=== PATIENT | male | born 1955 | race African-American/Black ===

== ENCOUNTER 2018-04-27 21:24 | Emergency (ER) | payer MEDICARE, MEDICAID ==
[~2018-04-27] VITALS: Ht 170.2 cm; Wt 70.3 kg
[2018-04-27 21:37] VITALS: BP 134/94
[2018-04-27] MEDS ORDERED: Sodium Chloride 500ML 500 ML IV ONE (21:49)
--- NOTE | 2018-04-27 21:51 | Emergency Room Report ---
History of Present Illness General Chief Complaint: Upper Respiratory Illness Source: Patient Present Illness HPI Patient present with complaints of cough and congestion Ongoing for the past 9 days Patient appears to have a stuttering deficit and difficult for him to provide full history Denies any recent travel there was complained to the triage regarding low back pain This will have to be readdressed as initially did not complain of this on my exam Patient has increased phlegm production denies any neck pain or photophobia Denies any fall or trauma Allergies: Coded Allergies: PENICILLINS (Verified Allergy, Unknown, 04/27/18) Patient History Past Medical History: see triage record Pertinent Family History: none Reviewed Nursing Documentation: PMH: Agreed; PSxH: Agreed Nursing Documentation-PMH Hx Hypertension: Yes Review of Systems All Other Systems: negative except mentioned in HPI Physical Exam Vital Signs Date Time Temp Pulse Resp B/P (MAP) Pulse Ox O2 Delivery O2 Flow Rate FiO2 04/27/18 21:26 99.1 104 14 126/86 94 Room Air 99.1 04/27/18 21:37 98 Sp02 EP Interpretation: reviewed, normal General Appearance: mild distress - Appears uncomfortable Head: normocephalic, atraumatic Eyes: bilateral eye PERRL, bilateral eye EOMI ENT: hearing grossly normal, normal pharynx, TMs + canals normal, uvula midline Neck: full range of motion, supple, no meningismus, no bony tend Respiratory: lungs clear, normal breath sounds, no rhonchi, no respiratory distress, no retraction, no accessory muscle use Cardiovascular #1: normal peripheral pulses, regular rate, rhythm, no edema, no gallop, no JVD, no murmur Gastrointestinal: normal bowel sounds, non tender, soft, no mass, no organomegaly, non-distended, no guarding, no hernia, no pulsatile mass, no rebound Genitourinary: no CVA tenderness Musculoskeletal: normal inspection Neurologic: oriented x3, responsive, consumer attorney III-XII nml as tested, motor strength/ tone normal, sensory intact Psychiatric: mood/affect normal Skin: normal color, no rash, warm/dry, palpation normal Lymphatic: normal inspection, no adenopathy Medical Decision Making Diagnostic Impression: Primary Impression: Cough ER Course Patient is a fairly complex patient with multiple differential to consideration including but not limited to cardiac cardiopulmonary and vascular emergencies After initial discussion Patient had further history obtained by having him right on a piece of paper Patient was having difficulty with his speech and it was helpful to have him right his complaints down He reports that over the past 2 weeks he has been having intermittent coughing episodes He is not sure what is exacerbating the problem At this time patient's blood work was appropriate X-ray shows borderline cardiomegaly but no obvious CHF I [place] that observing the patient overnight was warranted given the lack of any obvious findings thus far patient however reported feeling better and wanted to go back home to his kids he reports that he can see his physician tomorrow for reevaluation I did place him on Bactrim given his medical history and the productive cough Labs Test 04/27/18 22:08 White Blood Count 9.5 K/UL (4.8-10.8) Red Blood Count 4.48 M/UL (4.70-6.10) Hemoglobin 12.4 G/DL (14.2-18.0) Hematocrit 38.1 % (42.0-52.0) Mean Corpuscular Volume 85 FL (80-99) Mean Corpuscular Hemoglobin 27.8 PG (27.0-31.0) Mean Corpuscular Hemoglobin Concent 32.6 G/DL (32.0-36.0) Red Cell Distribution Width 11.5 % (11.6-14.8) Platelet Count 198 K/UL (150-450) Mean Platelet Volume 7.0 FL (6.5-10.1) Neutrophils (%) (Auto) 63.5 % (45.0-75.0) Lymphocytes (%) (Auto) 25.6 % (20.0-45.0) Monocytes (%) (Auto) 8.7 % (1.0-10.0) Eosinophils (%) (Auto) 1.4 % (0.0-3.0) Basophils (%) (Auto) 0.9 % (0.0-2.0) Sodium Level 138 MMOL/L (136-145) Potassium Level 3.4 MMOL/L (3.5-5.1) Chloride Level 100 MMOL/L (98-107) Carbon Dioxide Level 30 MMOL/L (21-32) Anion Gap 8 mmol/L (5-15) Blood Urea Nitrogen 17 mg/dL (7-18) Creatinine 1.4 MG/DL (0.55-1.30) Estimat Glomerular Filtration Rate > 60 mL/min (>60) Glucose Level 120 MG/DL (74-106) Calcium Level 8.7 MG/DL (8.5-10.1) Total Bilirubin 0.3 MG/DL (0.2-1.0) Aspartate Amino Transf (AST/SGOT) 23 U/L (15-37) Alanine Aminotransferase (ALT/SGPT) 23 U/L (12-78) Alkaline Phosphatase 96 U/L (46-116) Total Creatine Kinase 257 U/L (26-308) Creatine Kinase MB 1.4 NG/ML (0.0-3.6) Creatine Kinase MB Relative Index 0.5 Troponin I 0.000 ng/mL (0.000-0.056) Pro-B-Type Natriuretic Peptide 33 pg/mL (0-125) Total Protein 8.0 G/DL (6.4-8.2) Albumin 3.3 G/DL (3.4-5.0) Globulin 4.7 g/dL Albumin/Globulin Ratio 0.7 (1.0-2.7) Lipase 139 U/L (73-393) EKG Diagnostic Results Rate: normal Rhythm: NSR ST Segments: no acute changes Rhythm Strip Diag. Results EP Interpretation: yes Rate: 76 Rhythm: NSR, no PVC's, no ectopy Chest X-Ray Diagnostic Results Chest X-Ray Diagnostic Results : Chest X-Ray Ordered: Yes # of Views/Limited/Complete: 1 View Indication: Shortness of Breath EP Interpretation: Yes Interpretation: no consolidation, no effusion, no pneumothorax, other - Borderline cardiomegaly, mediastinum is mildly wide however there is rotational factor, Impression: No acute disease Electronically Signed by: Rafiq Dawson DO Last Vital Signs Date Time Temp Pulse Resp B/P (MAP) Pulse Ox O2 Delivery O2 Flow Rate FiO2 04/27/18 21:37 103 22 Room Air 98 04/27/18 21:26 99.1 126/86 94 99.1 Status: improved Disposition: HOME, SELF-CARE Condition: Improved Scripts Trimethoprim/Sulfamethoxazole 160/800* (BACTRIM DS TABLET*) 1 Each Tablet 1 TAB ORAL Q12H, #14 TAB 0 Refills Prov: Rafiq Dawson DO 04/27/18 Additional Instructions: Patient is provided with the discharge instructions notified to follow up with primary doctor in the next 2-3 days otherwise return to the er with any worsening symptoms. Please note that this report is being documented using DRAGON technology. This can lead to erroneous entry secondary to incorrect interpretation by the dictating instrument. Rafiq Dawson DO April 27, 2018 21:51
[2018-04-27] MEDS ORDERED: Albuterol ud Inhalation HHN ONE (22:00)
[2018-04-27] MEDS ORDERED: Ipratropium 0.02% Inh Soln 2.5ml UD HHN ONE (22:00)
[2018-04-27 22:28] LABS: BASOPHILS % (AUTO) 0.9 % (0.0-2.0); EOSINOPHILS % (AUTO) 1.4 % (0.0-3.0); HEMATOCRIT 38.1 % (42.0-52.0); HEMOGLOBIN 12.4 G/DL (14.2-18.0); LYMPHOCYTES % (AUTO) 25.6 % (20.0-45.0); MEAN CORPUSCULAR VOLUME 85 FL (80-99); MONOCYTES % (AUTO) 8.7 % (1.0-10.0); NEUTROPHILS % (AUTO) 63.5 % (45.0-75.0); PLATELET COUNT 198 K/UL (150-450); RED BLOOD COUNT 4.48 M/UL (4.70-6.10); RED CELL DISTRIBUTION WIDTH 11.5 % (11.6-14.8); WHITE BLOOD COUNT 9.5 K/UL (4.8-10.8)
[2018-04-27 22:34] LABS: ANION GAP 8 mmol/L (5-15); BLOOD UREA NITROGEN 17 mg/dL (7-18); CALCIUM 8.7 MG/DL (8.5-10.1); CARBON DIOXIDE 30 MMOL/L (21-32); CHLORIDE 100 MMOL/L (98-107); CREATININE 1.4 MG/DL (0.55-1.30); POTASSIUM 3.4 MMOL/L (3.5-5.1); SODIUM 138 MMOL/L (136-145)
[2018-04-27 22:50] LABS: ALANINE AMINOTRANSFERASE 23 U/L (12-78); ALBUMIN 3.3 G/DL (3.4-5.0); ALBUMIN/GLOBULIN RATIO 0.7 (1.0-2.7); ALKALINE PHOSPHATASE 96 U/L (46-116); ASPARTATE AMINO TRANSFERASE 23 U/L (15-37); BILIRUBIN,TOTAL 0.3 MG/DL (0.2-1.0); CKMB 1.4 NG/ML (0.0-3.6); CREATINE KINASE 257 U/L (26-308)
[2018-04-27 22:53] VITALS: BP 130/78
[2018-04-27] MEDS ORDERED: Bactrim-DS 1 tab ORAL ONE (23:15)
[2018-04-27] MEDS ORDERED: BACTRIM DS TAB1 EAC1 ORAL (23:15)
[2018-04-27 23:21] VITALS: BP 136/78
[2018-04-27 23:26] VITALS: BP 136/78
--- NOTE | 2018-04-28 10:40 | Diagnostic Imaging Report ---
Indication: Dyspnea Comparison: None A single view chest radiograph was obtained. Findings: Cardiomediastinal appearance is within normal limits for age. Pulmonary vascularity is appropriate. The diaphragmatic contour is smooth and costophrenic angles are sharp. No pleural effusions are identified. The bones are unremarkable. Impression: No acute findings
--- NOTE | 2018-04-28 14:02 | Cardiology Report ---
APPROVED REPORT EKG Measurement Heart [id number] Sinus rhythm with occasional premature ventricular complexes Possible Left atrial enlargement Borderline ECG
== END 2018-04-27 23:22 | disposition home or self-care (01) ==
LOC: EMR 21:50
DX: R05 Cough (principal); I10 Essential (primary) hypertension; Z88.0 Allergy status to penicillin
CPT/HCPCS: 36415; 71045; 80053; 82550; 82553; 83690; 83880; 84484; 85025; 87040; 93005; 94640; 96360; 96374; 99283

== ENCOUNTER 2019-05-09 21:30 | Emergency (ER) | payer MEDICAID, MEDICARE ==
[~2019-05-09] VITALS: Ht 170.2 cm; Wt 65.8 kg
[~2019-05-09 21:30] MED LIST: BACTRIM DS TAB1 EAC1 ORAL
--- NOTE | 2019-05-09 22:02 | NUR ---
ED Nurse Note: pt walked in c/o right knee pain x 1wk, pt states he fell about one week ago and it has been hurting but worsen today. Noted tenderness, swelling and mild deformity on right knee. cms intact. will cont monitor and wait for further orders, pt ambulates w/ steady gait with cane.
--- NOTE | 2019-05-09 22:24 | Emergency Room Report ---
History of Present Illness General Chief Complaint: Lower Extremity Injury Source: Patient Present Illness [facility] This is a 63-year-old male with a history of hypertension. He presents with chief complaint of right knee pain. He was walking his dog about 4 to 5 days ago. He tripped and fell directly into his right knee. It was sore but able to walk on it. Now is swollen and tender. Worse with ambulation and movement. No fever chills but no drainage. Denies any other complaint. His pain is 8 out of 10. Allergies: Coded Allergies: PENICILLINS (Verified Allergy, Unknown, 04/27/18) Patient History Past Medical History: see triage record, old chart reviewed, HTN Past Surgical History: none Pertinent Family History: none Social History: Denies: smoking Immunizations: other Reviewed Nursing Documentation: PMH: Agreed; PSxH: Agreed Nursing Documentation-PMH Past Medical History: No History, Except For Hx Hypertension: Yes Review of Systems Eye: Denies: eye pain, blurred vision ENT: Denies: ear pain, nose congestion, throat swelling Respiratory: Denies: cough, shortness of breath Cardiovascular: Denies: chest pain, palpitations Gastrointestinal: Denies: abdominal pain, diarrhea, nausea, vomiting Musculoskeletal: Reports: joint pain; Denies: back pain Skin: Denies: rash Neurological: Denies: headache, numbness Endocrine: Denies: increased thirst, increased urine Hematologic/Lymphatic: Denies: easy bruising All Other Systems: negative except mentioned in HPI Physical Exam Vital Signs Date Time Temp Pulse Resp B/P (MAP) Pulse Ox O2 Delivery O2 Flow Rate FiO2 05/09/19 21:46 97.9 91 16 144/88 (106) 97 Room Air Vitals unremarkable Sp02 EP Interpretation: reviewed, normal General Appearance: well appearing, no apparent distress, alert Head: normocephalic, atraumatic Eyes: bilateral eye PERRL, bilateral eye EOMI ENT: hearing grossly normal, normal pharynx Neck: full range of motion, supple, no meningismus Respiratory: chest non-tender, lungs clear, normal breath sounds Cardiovascular #1: regular rate, rhythm, no murmur Gastrointestinal: normal bowel sounds, non tender, no mass, no organomegaly, no bruit, non-distended Musculoskeletal: back normal, gait/station normal, normal range of motion, other - Right knee: He has abrasion over the patella. Fluctuant mass of about 3 cm. Full range of motion of the knee. Knee is stable. Psychiatric: mood/affect normal Skin: warm/dry Procedures Additional Procedure Procedure Narrative Procedure: Aspiration Indication: Fluctuant mass Description: I cleaned the area with chlorhexidine. Local anesthetic with 1% lidocaine without epinephrine. 1 cc injected. I aspirated about 10 cc of serosanguineous fluid. No pus. Patient tolerated procedure without any problem. Medical Decision Making Diagnostic Impression: Primary Impression: Prepatellar bursitis, right knee ER Course Patient with a prepatellar bursitis left knee infection. No evidence of any fracture. Will discharge home. Other X-Ray Diagnostic Results Other X-Ray Diagnostic Results : X-Ray ordered: Right knee x-rays # of Views/Limited Vs Complete: 4 View Indication: Pain EP Interpretation: Yes Interpretation: no dislocation, no soft tissue swelling, no fractures Impression: No acute disease Electronically Signed by: Peter Barker MD Last Vital Signs Date Time Temp Pulse Resp B/P (MAP) Pulse Ox O2 Delivery O2 Flow Rate FiO2 05/09/19 21:46 97.9 91 16 144/88 (106) 97 Room Air Status: improved Disposition: HOME, SELF-CARE Condition: Stable Scripts Ibuprofen* (MOTRIN*) 600 Mg Tablet 600 MG ORAL THREE TIMES A DAY, #30 TAB 0 Refills Prov: Peter Barker MD 05/09/19 Cephalexin* (KEFLEX*) 500 Mg Capsule 500 MG ORAL TID, #21 CAP Prov: Peter Barker MD 05/09/19 Additional Instructions: Keep wound clean. First with hydrogen peroxide and then apply antibiotic ointment. Follow-up with your doctor in 7 days. Return if worse. Peter Barker MD May 09, 2019 22:24
[2019-05-09] MEDS ORDERED: CEPHALEXIN500 MG ORAL (22:50)
[2019-05-09] MEDS ORDERED: IBUPROFEN600 MG ORAL (22:50)
[2019-05-09 23:00] VITALS: BP 121/76
--- NOTE | 2019-05-09 23:00 | NUR ---
ED Nurse Note: pt cleared to be d/c per ERMD, pt discharge and aftercare instruction provided w/ prescription, pt education done via discussion and handout, pt advised to follow up with pcp or return to ed if changes in condition, pt verbalized understanding and agrees with plan, vss, ambulatory w/ cane, pt left w/ all belongings. pt accompanied by brother.
--- NOTE | 2019-05-10 10:44 | Diagnostic Imaging Report ---
Indication: Pain Knee pain/trauma 3 views of the right knee were obtained. Findings: There is anterior soft tissue swelling in the prepatellar region. There is no acute fracture or malalignment identified. IMPRESSION: Anterior soft tissue swelling
== END 2019-05-09 23:00 | disposition home or self-care (01) ==
LOC: EMR 22:05
DX: M70.41 Prepatellar bursitis, right knee (principal); I10 Essential (primary) hypertension; Z88.0 Allergy status to penicillin
CPT/HCPCS: 99283

== ENCOUNTER 2019-06-03 04:02 | Emergency (ER) | payer MEDICARE ==
[~2019-06-03] VITALS: Ht 170.2 cm; Wt 64.9 kg
[~2019-06-03 04:02] MED LIST changes: +CEPHALEXIN500 MG ORAL; +IBUPROFEN600 MG ORAL
[2019-06-03 04:30] VITALS: BP 126/77
--- NOTE | 2019-06-03 04:30 | NUR ---
ED Nurse Note: Patient walked in to ER c/o right eye pain 08/10. States that eye is very itchy, has burning sensation in the eye. AAO x4, VSS at this time, skin is dry warm to touch.
[2019-06-03 04:35] VITALS: BP 135/75
[2019-06-03] MEDS ORDERED: Sulfacetamide 10% Opth 15ml Btl RIGHT EYE STA (04:49)
--- NOTE | 2019-06-03 04:52 | Emergency Room Report ---
History of Present Illness General Chief Complaint: Eye Problems Source: Patient Present Illness HPI Presents with right eye discharge and redness for 2 days. Is worsened and he has itching. He has minimal discomfort but denies any pain. He does not wear contact lenses. His vision is unchanged. He had the same problem before that improved with antibiotic drops. Patient has a history of HIV. His viral load is nondetectable. His CD4 count is 814. Patient denies fevers chills sore throat cough nausea vomiting diarrhea dysuria joint pain. The patient is worried about the possibility of this being related to walking his dogs. Allergies: Coded Allergies: PENICILLINS (Verified Allergy, Unknown, 04/27/18) Patient History Past Medical History: see triage record Social History: Reports: smoking Social History Narrative Lives with his dogs Reviewed Nursing Documentation: PMH: Agreed; PSxH: Agreed Nursing Documentation-PMH Hx Hypertension: Yes Review of Systems Constitutional: Reports: see HPI Eye: Reports: see HPI ENT: Denies: nose congestion, throat pain Respiratory: Denies: cough, shortness of breath Cardiovascular: Denies: edema Gastrointestinal: Reports: see HPI Skin: Denies: rash Psychiatric: Denies: depressed feelings Hematologic/Lymphatic: Reports: see HPI Allergic: Denies: urticaria, hay fever Physical Exam Vital Signs Date Time Temp Pulse Resp B/P (MAP) Pulse Ox O2 Delivery O2 Flow Rate FiO2 06/03/19 04:15 98.2 97 18 126/77 (93) 97 Room Air Sp02 EP Interpretation: reviewed, normal General Appearance: well appearing, no apparent distress Head: normocephalic, atraumatic Eyes: right eye lid inflammation, right eye Scleral Injection, right eye other - Yellow discharge; bilateral eye visual acuity - She report ENT: hearing grossly normal, normal voice Neck: full range of motion, supple Respiratory: no respiratory distress, speaking full sentences Cardiovascular #1: regular rate, rhythm Cardiovascular #2: 2+ radial (R) Gastrointestinal: normal inspection Musculoskeletal: gait/station normal, normal range of motion Neurologic: alert, normal gait, grossly normal Psychiatric: mood/affect normal Skin: normal color, warm/dry Medical Decision Making Diagnostic Impression: Primary Impression: Bacterial conjunctivitis of right eye ER Course Patient presents with redness and discharge in the right eye. There is no pain in visual acuity is unchanged. Differential includes viral versus bacterial conjunctivitis. This could also be allergic. Based on exam corneal abrasion is unlikely. Antibiotics are indicated. Discussed treatment plan with patient. Also discussed the need for close outpatient follow-up. Patient stable for outpatient observation and treatment. Last Vital Signs Date Time Temp Pulse Resp B/P (MAP) Pulse Ox O2 Delivery O2 Flow Rate FiO2 06/03/19 04:35 98.0 78 16 135/75 100 Room Air Status: improved Disposition: HOME, SELF-CARE Condition: Improved Scripts Sulfacetamide Sodium (BLEPH-10) 5 Ml Drops 2 ML OP Q6HR, #10 ML Prov: Aly Seymour MD 06/03/19 Naphazoline Hcl/Pheniramine (OPCON-A EYE DROPS) 15 Ml Drops 2 DROP OP Q6HR, #10 ML Prov: Aly Seymour MD 06/03/19 Aly Seymour MD Jun 03, 2019 04:52
[2019-06-03] MEDS ORDERED: BLEPH-105 ML OP (04:56)
[2019-06-03] MEDS ORDERED: OPCON-A EYE DRO15 ML OP (04:56)
[2019-06-03] MEDS ORDERED: Sulfacetamide 10% Opth 15ml Btl ONE (05:00)
--- NOTE | 2019-06-03 06:51 | NUR ---
ED Nurse Note: Pt cleared by health care Provider for discharge. DC instructions/prescription was given and explained to pt and verbalized understanding of teachings. All medical deviecs such as ID band removed. Pt is AAO x4, ambulatory and left with all personal belongings.
== END 2019-06-03 06:51 | disposition home or self-care (01) ==
LOC: EMR 05:00
DX: H10.9 Unspecified conjunctivitis (principal); Z88.0 Allergy status to penicillin; I10 Essential (primary) hypertension; F17.200 Nicotine dependence, unspecified, uncomplicated
CPT/HCPCS: 99282